=== PATIENT | male | born 1975 | race Caucasian/White ===

== ENCOUNTER 2023-01-25 15:14 | Day surgery (SDC) | payer SELFPAY ==
[2023-01-25] MEDS ORDERED: Bupivacaine HCl 0.5%/Epinephrine 1:200,000/PF 30 ml Vial ONE (15:33)
[2023-01-25 15:39] VITALS: BMI 29.1
[2023-01-25] MEDS ORDERED: fentaNYL PF 100 MCG/2 ML SYRINGE ONE (16:13)
[2023-01-25] MEDS ORDERED: Ondansetron PF 4 MG/2 ML Vial ONE (16:24)
[2023-01-25] MEDS ORDERED: Glycopyrrolate 0.2 MG/ML 5 ML SYRINGE ONE (16:24)
[2023-01-25] MEDS ORDERED: NEOSTIGMINE 3 MG/3 ML SYR 3 MG/3 ML SYRINGE ONE (16:24)
[2023-01-25] MEDS ORDERED: PROPOFOL 200 MG/20 ML VIAL ONE (16:24)
[2023-01-25] MEDS ORDERED: Labetalol HCl 100 MG/20 ML VIAL ONE (16:24)
[2023-01-25] MEDS ORDERED: Rocuronium Bromide 10 MG/ML (10ML VIAL) ONE (16:24)
[2023-01-25] MEDS ORDERED: Dexamethasone 20 MG/5 ML VIAL ONE (16:24)
[2023-01-25] MEDS ORDERED: Ketorolac Tromethamine 30 MG/ML VIAL ONE (16:24)
[2023-01-25] MEDS ORDERED: Esmolol 100 MG/10 ML VIAL ONE (16:24)
[2023-01-25] MEDS ORDERED: Lidocaine 1% PF 5 ML VIAL ONE (16:24)
[2023-01-25] MEDS ORDERED: Morphine 2 MG/ML VIAL SLOW IVP PRN (17:34)
[2023-01-25] MEDS ORDERED: HYDROcodone/Acetaminophen 5/325 mg Tablet PO PRN ×2 (17:34)
[2023-01-25] MEDS ORDERED: HYDROcodone/Acetaminophen 5/325 mg Tablet ONE (18:08)
== END 2023-01-25 18:27 | disposition home or self-care (01) ==
LOC: SDC 15:14
PROVIDERS: ATTEND Surgery
PROC: 0DTJ4ZZ Resection of Appendix, Percutaneous Endoscopic Approach (ICD-10-PCS; principal; 2023-01-25)
DX: K35.80 Unspecified acute appendicitis (principal); F17.210 Nicotine dependence, cigarettes, uncomplicated; I10 Essential (primary) hypertension
CPT/HCPCS: 88304; A4649; J1100; J1885; J2405; J2704